=== PATIENT | male | born 1930 | race Caucasian/White ===

== ENCOUNTER 2018-09-12 19:02 | Emergency (ER) | payer MEDICARE, BC ==
[2018-09-12 19:24] VITALS: RESP 18
[2018-09-12] MEDS ORDERED: ONDANSETRON 4 MG/2 ML VIAL IVP STA (21:10)
[2018-09-12] MEDS ORDERED: SODIUM CHLORIDE 0.9% 500 ML 500 ML IV ONE (21:10)
[2018-09-12] MEDS ORDERED: HYDROmorphone 0.5 MG/0.5 ML SYRINGE IVP STA (21:10)
--- NOTE | 2018-09-12 21:36 | ED ---
General Adult HPI - General Chief complaint: Headache Stated complaint: burn from heating pad & head pain Time Seen by Provider: 09/12/18 19:25 Source: patient, family Mode of arrival: ambulatory Limitations: no limitations - History of Present Illness Initial comments: 88-year-old male patient presents to the emergency department today for evaluation of headache. Patient states for the last 5 weeks is been having this intense electric shock type pain in his head. She states approximately 5 weeks ago he was driving his car when he suddenly had left-sided neck pain. Patient states he applied a heating pad to the left side of his face, states this did cause clarke, blistering to the scalp. Patient states that since then he has been having these electric shock type pains to the head. Patient states when the pain comes on he is completely incapacitated for a few seconds until the pain resolves completely. Patient states happens throughout the entire day. Patient states he is unable to sleep due to the pain. Patient states he is also had a change to his voice and has been having intermittent difficulty speaking. Denies any blurred or double vision. Patient denies any numbness or tingling to the extremities. Denies any weakness to the extremities. Patient denies any history of similar symptoms. States he is otherwise healthy and takes only a baby aspirin daily. Patient did see his primary care physician, had outpatient lab work and computed tomography scan of the brain performed, there is no acute abnormalities noted to either the labs ordered a computed tomography scan. Patient does have an appointment with Dr. Velásquez neurologist on the , but the pain worsened today and he presented here for further evaluation. Patient denies any recent fever, chills, shortness breath, chest pain, abdominal pain, nausea, vomiting, diarrhea, constipation, back pain, weakness, hematuria, dysuria, urinary urgency, urinary frequency, or any other complaints. - Related Data Home Medications Medication Instructions Recorded Confirmed Aspirin 81 mg PO DAILY 09/12/18 09/12/18 Allergies Allergy/AdvReac Type Severity Reaction Status Date / Time gabapentin [From Neurontin] AdvReac Nausea & Verified 09/12/18 20:15 Vomiting Review of Systems ROS Statement: Those systems with pertinent positive or pertinent negative responses have been documented in the HPI. ROS Other: All systems not noted in ROS Statement are negative. Past Medical History Past Medical History: No Reported History History of Any Multi-Drug Resistant Organisms: None Reported Past Surgical History: Prostate Surgery Additional Past Surgical History / Comment(s): bowel Past Psychological History: No Psychological Hx Reported Smoking Status: Never smoker Past Alcohol Use History: None Reported Past Drug Use History: None Reported General Exam Limitations: no limitations General appearance: alert, in no apparent distress, other (Physical well- developed, well-nourished elderly male patient in no acute distress. Vital signs upon presentation are temperature 97.6F, pulse 74, respirations 18, blood pressure 159/71, pulse ox 96% on room air.) Eye exam: Present: normal appearance, PERRL, EOMI. Absent: scleral icterus, conjunctival injection, nystagmus, periorbital swelling ENT exam: Present: normal exam, normal oropharynx, mucous membranes moist Respiratory exam: Present: normal lung sounds bilaterally. Absent: respiratory distress, wheezes, rales, rhonchi, stridor Cardiovascular Exam: Present: regular rate, normal rhythm, normal heart sounds. Absent: systolic murmur, diastolic murmur, rubs, gallop, clicks GI/Abdominal exam: Present: soft, normal bowel sounds. Absent: distended, tenderness, guarding, rebound, rigid Neurological exam: Present: alert, oriented X3, CN II-XII intact, other (Strength in all 4 extremities is 5/5.) Psychiatric exam: Present: normal affect, normal mood Skin exam: Present: warm, dry, intact, normal color. Absent: rash Course Vital Signs 09/12/18 09/12/18 19:20 21:40 Temperature 97.6 F Pulse Rate 74 69 Respiratory 18 18 Rate Blood Pressure 159/71 145/98 O2 Sat by Pulse 96 100 Oximetry Medical Decision Making - Medical Decision Making 88-year-old male patient presents to the emergency department today for evaluation of worsening headaches. Initial symptoms started approximately 5 weeks ago he has been having daily intermittent electric shock type headaches. Physical examination is relatively unremarkable, he is neurologically intact with no focal deficits. Patient did have outpatient labs and computed tomography scan performed on 09/01/2018 which were negative for any acute abnormalities. Patient did report difficulties over the last 5 weeks as well. Patient denies speech difficulty today. Labs reviewed and were unremarkable. Patient will be transferred to [facility] for further neurologic evaluation and workup. Did discuss results and plan with the patient, he is agreeable. - Lab Data Result diagrams: 09/12/18 21:29 09/12/18 21:29 Lab Results 09/12/18 09/12/18 Range/Units 21:29 21:29 WBC 6.9 (3.8-10.6) k/uL RBC 3.83 L (4.30-5.90) m/uL Hgb 12.3 L (13.0-17.5) gm/dL Hct 37.4 L (39.0-53.0) % MCV 97.7 (80.0-100.0) fL MCH 32.0 (25.0-35.0) pg MCHC 32.8 (31.0-37.0) g/dL RDW 13.7 (11.5-15.5) % Plt Count 196 (150-450) k/uL Neutrophils % 66 % Lymphocytes % 23 % Monocytes % 6 % Eosinophils % 2 % Basophils % 1 % Neutrophils # 4.5 (1.3-7.7) k/uL Lymphocytes # 1.6 (1.0-4.8) k/uL Monocytes # 0.4 (0-1.0) k/uL Eosinophils # 0.1 (0-0.7) k/uL Basophils # 0.1 (0-0.2) k/uL Sodium 141 (137-145) mmol/L Potassium 4.7 (3.5-5.1) mmol/L Chloride 109 H (98-107) mmol/L Carbon Dioxide 25 (22-30) mmol/L Anion Gap 7 mmol/L BUN 24 H (9-20) mg/dL Creatinine 1.15 (0.66-1.25) mg/dL Est GFR (CKD-EPI)AfAm 65 (>60 ml/min/1.73 sqM) Est GFR (CKD-EPI)NonAf 57 (>60 ml/min/1.73 sqM) Glucose 94 (74-99) mg/dL Calcium 9.4 (8.4-10.2) mg/dL Total Bilirubin 0.5 (0.2-1.3) mg/dL AST 36 (17-59) U/L ALT 34 (21-72) U/L Alkaline Phosphatase 88 (38-126) U/L Total Protein 6.5 (6.3-8.2) g/dL Albumin 4.0 (3.5-5.0) g/dL Disposition Clinical Impression: Intractable headache Disposition: OTHER INSTITUTION NOT DEFINED Condition: Serious Referrals: Fausto Berrios MD [Primary Care Provider] - 1-2 days - Out of Hospital Transfer - Req. Specs Out of Hospital Transfer - Requested Specifics: Other Emergency Center ([facility])
[2018-09-12 21:49] LABS: Basophils # (A) 0.1 k/uL (0-0.2); Basophils % (A) 1 %; Eosinophils # (A) 0.1 k/uL (0-0.7); Eosinophils % (A) 2 %; HCT 37.4 % (39.0-53.0); HGB 12.3 gm/dL (13.0-17.5); Lymphocytes # (A) 1.6 k/uL (1.0-4.8); Lymphocytes % (A) 23 %; MCHC 32.8 g/dL (31.0-37.0); MCV 97.7 fL (80.0-100.0); Mean Platelet Volume 7.9; Monocytes # (A) 0.4 k/uL (0-1.0); Monocytes % (A) 6 %; Neutrophils # (A) 4.5 k/uL (1.3-7.7); Neutrophils % (A) 66 %; Platelet Count 196 k/uL (150-450); RBC 3.83 m/uL (4.30-5.90); RDW 13.7 % (11.5-15.5); WBC 6.9 k/uL (3.8-10.6)
[2018-09-12 22:01] LABS: Calcium 9.4 mg/dL (8.4-10.2); Potassium 4.7 mmol/L (3.5-5.1); Total Bilirubin 0.5 mg/dL (0.2-1.3); Total Protein 6.5 g/dL (6.3-8.2)
[2018-09-12 23:03] VITALS: BP 125/68; PULSE 65; TEMP 97.9
== END 2018-09-12 23:09 | disposition short-term general hospital (02) ==
LOC: EC 19:02
DX: R51 Headache (principal); R47.9 Unspecified speech disturbances; Z88.8 Allergy status to other drugs, medicaments and biological substances; Z79.82 Long term (current) use of aspirin; X16.XXXA Contact with hot heating appliances, radiators and pipes, initial encounter
CPT/HCPCS: 99284; 96374; 96375; 36415; 80053; 84443; 85025; J2405; J1170

== ENCOUNTER → 2018-09-24 | Outpatient (CLI) | payer MEDICARE, BC ==
--- NOTE | 2018-09-24 14:44 | MR ---
EXAMINATION TYPE: MR brain wo/w con DATE OF EXAM: 09/24/2018 COMPARISON: None HISTORY: neoplasm brain stem CONTRAST: Performed utilizing 9.5 mL intravenous Gadavist gadolinium contrast. TECHNIQUE: Multiplanar, multiecho imaging on a 3.0 Ale[place] magnet is performed through the brain. Stud y is performed within 24 hours of arrival to the hospital. The craniovertebral junction is normal. The pituitary is normal. Diffusion-weighted imaging is performed. No abnormal hyperintensity is present to suggest an acute i ntracranial infarct or acute ischemic change. There are scattered punctate areas of hyperintensity on T2 and Inversion Recovery weighted sequences which are non-specific but can be related to microvascular ischemic changes. Ventricles and sulci are appropriate for the patient age. The right A1 segment appears slightly hypop lastic. Attention is paid to the brainstem. No masslike areas evident. IMPRESSIONS: 1. 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
--- NOTE | 2018-09-24 14:47 | MR ---
EXAMINATION TYPE: MR angio head wo con DATE OF EXAM: 09/24/2018 COMPARISON: None HISTORY: neoplasm brain stem CONTRAST: None TECHNIQUE: Multiplanar multiecho imaging on a 3.0 Alethea magnet is performed through the [place]. 3-D [id number] imaging is performed. Source images are reviewed on the computer in the axi al plane. Reconstructed images rotating on the computer are reviewed. FINDINGS: The internal carotid arteries bifurcate normally into A1 and M1 segments. The right A1 seg ment is hypoplastic. The A2 segments are normal. Middle cerebral artery branches are normal. Anterior communicating artery is patent. Posterior communicating arteries are not identified. Vertebrobasilar arteries within the [id number] are normal. Posterior cerebral vasculature is norm al. No suspicious aneurysm or aneurysmal dilatation is evident. No obstructions are identified. No significant flow-limiting stenosis is evident. IMPRESSIONS: 1. NORMAL MRA [place].
== END | disposition home or self-care (01) ==
LOC: RADMRIMAIN 10:55
PROVIDERS: ATTEND Psychiatry & Neurology Neurology
DX: C71.7 Malignant neoplasm of brain stem (principal); G31.9 Degenerative disease of nervous system, unspecified; I67.82 Cerebral ischemia; R90.89 Other abnormal findings on diagnostic imaging of central nervous system
CPT/HCPCS: 70544; 70553; A9585